=== PATIENT | female | born 1980 | race African-American/Black ===

== ENCOUNTER 2017-11-08 22:41 | Emergency (ER) | payer SELFPAY ==
[~2017-11-08] VITALS: Ht 165.1 cm; Wt 100.0 kg
[2017-11-08 22:44] VITALS: BP 137/69; PULSE 135; RESP 18; TEMP 98.6; O2SAT 100
[2017-11-08 22:45] VITALS: PULSE 130; RESP 24; O2SAT 96
[2017-11-08] MEDS ORDERED: SODIUM CHLOR 0.9% 1000 ML INJ 1,000 ML IV SCH ×2 (22:57→23:01)
--- NOTE | 2017-11-08 23:01 | PD ---
HPI Chief Complaint: Respiratory Symptoms Time Seen by Provider: 22:50 Travel History International Travel<30 days: No Contact w/Intl Traveler<30days: No History of Present Illness HPI This is a 37-year-old female who presents for evaluation of dyspnea. She reports that yesterday she had a "bad day at work." And she was experiencing anxiety, paresthesias in her extremities and a headache. She had difficulty sleeping last night and she took some Tylenol PM. Those symptoms improved this morning before but this evening at 8 PM she began developing dyspnea on left upper back pain. The pain is sharp, worse with deep inspiration, associated with dyspnea. She denies chest pain but she does report that she's had some nausea and vomiting today. Denies diarrhea or constipation, fevers or chills, flank pain, abdominal pain, recent travel, recent surgery, leg swelling. She reports a history of mild intermittent asthma. She denies any cough, congestion or wheezing. She has no other complaints at this time. PFSH Past Medical History ?: Not LMP: IMPLANT BC Social History Tobacco Use: No Allergies-Medications (Allergen,Severity, Reaction): Coded Allergies: No Known Allergies (Unverified , 11/08/17) Review of Systems Except as stated in HPI: all other systems reviewed are Neg Physical Exam Narrative GENERAL: Well-developed well-nourished female in no acute distress. Tachycardic. SKIN: Warm and dry. HEAD: Atraumatic. Normocephalic. EYES: Pupils equal and round. No scleral icterus. No injection or drainage. ENT: No nasal bleeding or discharge. Mucous membranes pink and moist. NECK: Trachea midline. No JVD. CARDIOVASCULAR: Regular rate and rhythm. No murmur appreciated. RESPIRATORY: No accessory muscle use. Clear to auscultation. Breath sounds equal bilaterally. No crackles no wheezing or rhonchi. GASTROINTESTINAL: Abdomen soft, non-tender, nondistended. Hepatic and splenic margins not palpable. MUSCULOSKELETAL: No obvious deformities. No clubbing. No cyanosis. No edema. NEUROLOGICAL: Awake and alert. No obvious cranial nerve deficits. Motor grossly within normal limits. Normal speech. PSYCHIATRIC: Appropriate mood and affect; insight and judgment normal. Data Data Last Documented VS Vital Signs Date Time Temp Pulse Resp B/P (MAP) Pulse Ox O2 Delivery O2 Flow Rate FiO2 11/08/17 23:04 100 Nasal Cannula 2.00 11/08/17 23:02 20 11/08/17 22:45 130 11/08/17 22:44 98.6 Orders Orders Electrocardiogram (11/08/17 ) Complete Blood Count With Diff (11/08/17 22:57) Comprehensive Metabolic Panel (11/08/17 22:57) D-Dimer (11/08/17 22:57) Magnesium (Mg) (11/08/17 22:57) Chest, Single Ap (11/08/17 22:57) Ecg Monitoring (11/08/17 22:57) Iv Access Insert/Monitor (11/08/17 22:57) Oximetry (11/08/17 22:57) Oxygen Administration (11/08/17 22:57) Sodium Chlor 0.9% 1000 Ml Inj (Ns 1000 M (11/08/17 22:57) Ed Urine Pregnancytest Poc (11/08/17 22:57) Sodium Chlor 0.9% 1000 Ml Inj (Ns 1000 M (11/08/17 23:01) Lorazepam Inj (Ativan Inj) (11/08/17 23:15) Labs Laboratory Tests Test 11/08/17 23:20 11/08/17 23:50 White Blood Count 9.0 TH/MM3 Red Blood Count 4.63 MIL/MM3 Hemoglobin 13.3 GM/DL Hematocrit 40.6 % Mean Corpuscular Volume 87.7 FL Mean Corpuscular Hemoglobin 28.7 PG Mean Corpuscular Hemoglobin Concent 32.8 % Red Cell Distribution Width 13.9 % Platelet Count 345 TH/MM3 Mean Platelet Volume 7.3 FL Neutrophils (%) (Auto) 58.4 % Lymphocytes (%) (Auto) 25.9 % Monocytes (%) (Auto) 10.1 % Eosinophils (%) (Auto) 4.8 % Basophils (%) (Auto) 0.8 % Neutrophils # (Auto) 5.2 TH/MM3 Lymphocytes # (Auto) 2.3 TH/MM3 Monocytes # (Auto) 0.9 TH/MM3 Eosinophils # (Auto) 0.4 TH/MM3 Basophils # (Auto) 0.1 TH/MM3 CBC Comment DIFF FINAL Differential Comment Blood Urea Nitrogen 5 MG/DL Creatinine 1.14 MG/DL Random Glucose 88 MG/DL Total Protein 7.9 GM/DL Albumin 3.4 GM/DL Calcium Level 8.1 MG/DL Magnesium Level 1.9 MG/DL Alkaline Phosphatase 67 U/L Aspartate Amino Transf (AST/SGOT) 13 U/L Alanine Aminotransferase (ALT/SGPT) 21 U/L Total Bilirubin 0.2 MG/DL Sodium Level 138 MEQ/L Potassium Level 4.1 MEQ/L Chloride Level 107 MEQ/L Carbon Dioxide Level 25.8 MEQ/L Anion Gap 5 MEQ/L Estimat Glomerular Filtration Rate 65 ML/MIN D-Dimer Quantitative (PE/DVT) 0.46 MG/L FEU [facility] Medical Decision Making Medical Screen Exam Complete: Yes Emergency Medical Condition: Yes Medical Record Reviewed: Yes Differential Diagnosis Anxiety, pleurisy, costochondritis, pneumothorax, pericarditis, myocarditis, pulmonary embolism Narrative Course The patient was placed on ECG monitoring pulse oximetry. A 12-lead EKG was obtained revealing sinus tachycardia. Plan is for basic lab work, chest x-ray. The patient received IV Zofran, fluids, Ativan and Toradol. The patient's lab work and imaging studies are reassuring. Creatinine is 1.14 with a GFR of 65, calcium level of 8.1, otherwise lab work unremarkable. D- dimer is within normal limits. I suspect her symptoms are secondary to anxiety and musculoskeletal pain. The patient is stable for discharge. Diagnosis Primary Impression: Back pain Additional Impression: Anxiety Departure Forms: Tests/Procedures, Work Release Enter return to work date: Nov 10, 2017 Additional Instructions: Tylenol or Motrin for pain. Rest. Follow-up with primary care physician. Return for any emergent medical conditions. Med/Other Pt SpecificInfo: No Change to Meds Disposition: 01 DISCHARGE HOME Condition: Stable Bautista Granado Nov 08, 2017 23:01
[2017-11-08 23:02] VITALS: RESP 20; O2SAT 100
[2017-11-08] MEDS ORDERED: LORazepam 2 MG/ML VIAL IV PUSH ONE (23:15)
--- NOTE | 2017-11-08 23:24 | RADRPT ---
EXAM DATE/TIME: 11/08/2017 23:04 [place] COMPARISON: No previous studies available for comparison. INDICATIONS : Shortness of breath. MEDICAL HISTORY : None. SURGICAL HISTORY : None. ENCOUNTER: Initial ACUITY: 1 day PAIN SCORE: 3/10 LOCATION: Bilateral chest FINDINGS: A single view of the chest demonstrates the lungs to be symmetrically aerated without evidence of mas s, infiltrate or effusion. The cardiomediastinal contours are unremarkable. Osseous structures are intact. CONCLUSION: The lungs are clear. Constantine Dior MD on November 08, 2017 at 23:20 Board Certified Radiologist. This report was verified electronically.
[2017-11-08 23:33] LABS: AUTOMATED NEUTROPHIL # 5.2 TH/MM3 (1.8-7.7); BASOPHIL # 0.1 TH/MM3 (0-0.2); BASOPHIL % 0.8 % (0.0-2.0); EOSINOPHIL # 0.4 TH/MM3 (0-0.4); EOSINOPHIL % 4.8 % (0.0-4.0); HEMATOCRIT 40.6 % (35.0-46.0); HEMO FLAGS DIFF FINAL; LYMPH % 25.9 % (9.0-44.0); LYMPHOCYTE # 2.3 TH/MM3 (1.0-4.8); MEAN CELL VOLUME 87.7 FL (80.0-100.0); MEAN CORPUSCULAR HEMOGLOBIN 28.7 PG (27.0-34.0); MEAN CORPUSCULAR HGB CONC 32.8 % (32.0-36.0); MONO % 10.1 % (0.0-8.0); NEUT % 58.4 % (16.0-70.0); PLATELET COUNT 345 TH/MM3 (150-450); RED BLOOD COUNT 4.63 MIL/MM3 (4.00-5.30); RED CELL DISTRIBUTION WIDTH 13.9 % (11.6-17.2)
[2017-11-09 00:08] LABS: ALKALINE PHOSPHATASE 67 U/L (45-117); TOTAL BILIRUBIN ADULT 0.2 MG/DL (0.2-1.0)
[2017-11-09 00:13] LABS: ALT (GPT) 21 U/L (10-53); ANION GAP 5 MEQ/L (5-15); AST (GOT) 13 U/L (15-37); BICARBONATE 25.8 MEQ/L (21.0-32.0); BLOOD UREA NITROGEN 5 MG/DL (7-18); CHLORIDE 107 MEQ/L (98-107); GLOMERULAR FILTRATION RATE 65 ML/MIN (>89); MAGNESIUM 1.9 MG/DL (1.5-2.5); POTASSIUM 4.1 MEQ/L (3.5-5.1); SODIUM (NA) 138 MEQ/L (136-145)
[2017-11-09] MEDS ORDERED: KETOROLAC TROMETHAMINE 30 MG/ML (IVP) VIAL IV PUSH ONE (01:00)
[2017-11-09] MEDS ORDERED: KETOROLAC TROMETHAMINE 60 MG/2 ML (IM) VIAL IM ONE (01:15)
--- NOTE | 2017-11-09 15:25 | EKG ---
Date Performed: 11/08/2017 Time Performed: 23:13:19 PTAGE: 37 years EKG: SINUS TACHYCARDIA POSSIBLE LEFT ATRIAL ENLARGEMENT ABNORMAL RHYTHM ECG NO PREVIOUS TRACING DOCTOR: Mikcey Ritter Interpretating Date/Time 11/09/2017 15:24:32
== END 2017-11-09 01:49 | disposition home or self-care (01) ==
LOC: NEPD 22:41
DX: M54.9 Dorsalgia, unspecified (principal); F41.9 Anxiety disorder, unspecified; R00.0 Tachycardia, unspecified; R20.2 Paresthesia of skin; R51 Headache; R11.2 Nausea with vomiting, unspecified; J45.909 Unspecified asthma, uncomplicated; R94.31 Abnormal electrocardiogram [ECG] [EKG]
CPT/HCPCS: 71010; 80053; 83735; 84703; 85025; 85379; 93005; 96361; 96372; 96374; 96375; 99285; J1885; J2060; J7030